=== PATIENT | male | born 1970 | race Caucasian/White ===

== ENCOUNTER 2017-08-11 07:18 | Observation (INO) ==
[2017-08-11] MEDS ORDERED: cefTRIAXone 1,000 MG in SODIUM CHLORIDE 0.9% 100 ML IV STA (08:35)
[2017-08-11 09:08] LABS: Basophils # 0.1 10*3/uL (0.0-0.2); Basophils % 0.5 % (0.0-0.8); Eosinophils # 0.2 10*3/uL (0.0-0.87); Eosinophils % 1.8 % (0.00-10.9); Hematocrit 42.2 VOL% (42.0-52.0); Hemoglobin 14.3 GM/DL (14.0-18.0); Immature Granulocytes % 0.5 %; Immature Granulocytes Absolute 0.05 #; Lymphocytes # 1.5 10*3/uL (1.4-4.0); Lymphocytes % 16.6 % (21.2-54.2); Mean Corpuscular HGB Conc 33.9 GM/DL (32-36); Mean Corpuscular Hemoglobin 31 PG (27-34); Mean Corpuscular Volume 92.5 FL (87-102); Mean Platelet Volume 10.4 FL (9.6-12.0); Monocytes # 1.3 10*3/uL (0.11-0.8); Monocytes % 14.2 % (1.7-12.7); Neutrophils # 6.2 10*3/uL (1.4-7.4); Neutrophils % 66.4 % (38.7-73.9); Platelet Count 174 T/CUMM (130-400); Red Blood Count 4.56 MC/CUMM (3.8-5.5); Red Cell Distribution Width 12.7 % (9.3-17.3); White Blood Count 9.3 T/CUMM (4-12)
[2017-08-11 09:21] LABS: Albumin 3.3 G/DL (3.4-5.0); Bilirubin,Total 0.8 MG/DL (0.2-1.0); Osmolality,Calculated 279.5 MOS/KG (273-304); Potassium 4.1 MMOL/L (3.5-5.1)
[2017-08-11] MEDS ORDERED: ONDANSETRON 4 MG/2 ML VIAL IV STA (10:22)
[2017-08-11] MEDS ORDERED: HYDROmorphone 2 MG/1 ML VIAL IV STA (10:22)
[2017-08-11] MEDS ORDERED: MORPHINE 4 MG/1 ML VIAL IV STA (10:26)
[2017-08-11] MEDS ORDERED: CLINDAMYCIN INJ 900 MG in PREMIX 1 EACH IV ONE (10:30)
[2017-08-11] MEDS ORDERED: CLINDAMYCIN INJ 50 ML IV ONE (11:31)
[2017-08-11] MEDS ORDERED: KETOROLAC 30 MG/1 ML VIAL ONE (11:52)
[2017-08-11] MEDS ORDERED: PROPOFOL 200 MG/20 ML VIAL IV ONE (11:52)
[2017-08-11] MEDS ORDERED: ONDANSETRON 4 MG/2 ML VIAL ONE ×2 (11:52→11:55)
[2017-08-11] MEDS ORDERED: SEVOFLURANE 1 UNIT/15 MINUTE INH ONE (11:52)
[2017-08-11] MEDS ORDERED: fentaNYL 100 MCG/2 ML VIAL ONE (11:52)
[2017-08-11] MEDS ORDERED: MORPHINE 10 MG/1 ML VIAL ONE (11:55)
[2017-08-11] MEDS ORDERED: ONDANSETRON 4 MG/2 ML VIAL IV PRN ×2 (11:56→12:08)
[2017-08-11] MEDS: MORPHINE 10 MG/1 ML VIAL IV PRN ×5 (12:00→12:24)
[2017-08-11] MEDS ORDERED: MORPHINE 4 MG/1 ML VIAL IV PRN (12:08)
[2017-08-11] MEDS ORDERED: PROMETHAZINE 25 MG/1 ML VIAL IM PRN (12:08)
[2017-08-11] MEDS ORDERED: KETOROLAC 15 MG/1 ML VIAL ONE (12:18)
[2017-08-11] MEDS: KETOROLAC 15 MG/1 ML VIAL IV SCH ×2 (12:19→17:18)
[2017-08-11] MEDS: SULFAMETHOX/TRIMETHOPRIM 800-160 MG TABLET PO SCH ×2 (13:24→21:08)
[2017-08-11] MEDS: LACTATED RINGERS 1,000 ML IV SCH ×2 (17:18→21:11)
[2017-08-12] MEDS: KETOROLAC 15 MG/1 ML VIAL IV SCH ×2 (00:12→05:59)
[2017-08-12] MEDS: LACTATED RINGERS 1,000 ML IV SCH (05:34)
[2017-08-12] MEDS ORDERED: LIDOCAINE 2% TOP JELLY 20 ML VIAL INTRAURETH ONE (10:09)
[2017-08-12] MEDS: SULFAMETHOX/TRIMETHOPRIM 800-160 MG TABLET PO SCH (10:38)
[2017-08-12 12:49] VITALS: BP 130/76
== END 2017-08-12 13:00 | disposition home or self-care (01) ==
LOC: N.ED 07:18 → N.EDINP 07:18 → N.3E 11:15
PROVIDERS: ADMIT Surgery; ATTEND Surgery